=== PATIENT | male | born 1945 | race Two or more races ===

== ENCOUNTER 2025-05-17 06:35 | Day surgery (SDC) | payer OTHER, SELFPAY ==
[2025-05-16 10:20] VITALS: BMI 29.8
[2025-05-17] VITALS (10 sets, daily range): BP systolic 155–179; BP diastolic 84–101; PULSE 69–83; RESP 7–20; TEMP 36.2–37.6; O2SAT 93–97; BMI 29.9
[2025-05-17] MEDS: fentaNYL CIT INJ 50 mCg/ML AMP 2ML (ASD USE ONLY) IVP (07:44)
[2025-05-17] MEDS: MIDAZOLAM INJ 1 MG/ML VIAL 2 ML (ASD USE ONLY) 2 MG IVP (07:44)
[2025-05-17] MEDS: SODIUM CHLORIDE 0.9% 500 ML 500 ML 125 ML IV (07:44)
[2025-05-17] MEDS: SIMETHICONE 40 MG/0.6 ML ORAL SYRINGE PO (08:45)
== END 2025-05-17 08:50 | disposition home or self-care (01) ==
PROVIDERS: PCP Nurse Practitioner Primary Care; Referring Provider Surgery; Visit Provider Surgery
PROC: 0DBE8ZX Excision of Large Intestine, Via Natural or Artificial Opening Endoscopic, Diagnostic (ICD-10-PCS; CPT 45380; principal; 2025-05-17 07:30)
DX: Z12.11 Encounter for screening for malignant neoplasm of colon (principal); D12.3 Benign neoplasm of transverse colon; D12.8 Benign neoplasm of rectum; K64.1 Second degree hemorrhoids; Z86.0100 Personal history of colon polyps, unspecified; N40.0 Benign prostatic hyperplasia without lower urinary tract symptoms; E78.00 Pure hypercholesterolemia, unspecified; Z79.899 Other long term (current) drug therapy
CPT/HCPCS: 45385; 45380; A4649; J1200; J2250; J3010; J7999; A9270